=== PATIENT | female | born 1960 | race Caucasian/White ===

== ENCOUNTER 2021-05-17 06:08 | Day surgery (SDC) | payer BC ==
[~2021-05-17] VITALS: Ht 157.5 cm; Wt 69.3 kg
[2021-05-17] MEDS ORDERED: EUTHYROX50 MCG PO (06:38)
[2021-05-17] MEDS ORDERED: ASPI81CH PO (06:38)
--- NOTE | 2021-05-17 07:21 | NUR ---
05/17/21 0721 Gavin Rhodes transdermal patch applied to left ear for n/v
== END 2021-05-17 09:46 | disposition home or self-care (01) ==
LOC: ORSCSDS 06:08
PROVIDERS: Surgery
PROC: BF031ZZ Plain Radiography of Gallbladder and Bile Ducts using Low Osmolar Contrast (ICD-10-PCS; principal; 2021-05-17 07:30)
PROC: 0FT44ZZ Resection of Gallbladder, Percutaneous Endoscopic Approach (ICD-10-PCS; principal; 2021-05-17 07:30)
DX: K80.10 Calculus of gallbladder with chronic cholecystitis without obstruction (principal); E03.9 Hypothyroidism, unspecified; Z79.899 Other long term (current) drug therapy; Z79.82 Long term (current) use of aspirin
CPT/HCPCS: 74300; 88304; A9270; C1729; J0690; J1100; J1885; J2310; J2370; J2405; J2704; J3010; J7120

== ENCOUNTER 2021-08-21 06:55 | Day surgery (SDC) | payer BC ==
[~2021-08-21] VITALS: Ht 160 cm; Wt 72.0 kg
[~2021-08-21 06:55] MED LIST: ASPI81CH PO; EUTHYROX50 MCG PO
--- NOTE | 2021-08-21 08:13 | NUR ---
[facility] warming gown applied. History, Chart, Medications and Allergies reviewed before start of procedure.Lungs clear T/O to Auscultation. Patient confirms NPO status and agrees with scheduled surgery. Pre-Op teaching done. Pt verbalizes understanding. Patient States Post-Procedure ride home has been arranged.
--- NOTE | 2021-08-21 11:27 | NUR ---
Patient up to Ambulate independently. Gait steady. Discharge instructions reviewed with patient AND PT'S . Patient verbalizes understanding. Copy given to patient to take home. Discharged via wheelchair to private car for ride home.
== END 2021-08-21 23:20 | disposition home or self-care (01) ==
LOC: ORSCMMR 06:55 → ORSCSDS 08-22 09:15 → ORD 08-22 09:15 → ORSCMMR 08-22 10:15
PROVIDERS: Obstetrics & Gynecology
PROC: 0UDB8ZX Extraction of Endometrium, Via Natural or Artificial Opening Endoscopic, Diagnostic (ICD-10-PCS; principal; 2021-08-21 08:30)
DX: C54.1 Malignant neoplasm of endometrium (principal); N95.0 Postmenopausal bleeding; N85.00 Endometrial hyperplasia, unspecified; E03.9 Hypothyroidism, unspecified; Z79.899 Other long term (current) drug therapy
CPT/HCPCS: 88305; A9270; J0690; J1100; J1885; J2250; J2405; J2704; J3010; J7120

== ENCOUNTER 2023-07-24 08:26 | Day surgery (SDC) | payer BC ==
[~2023-07-24] VITALS: Ht 157.5 cm; Wt 68.8 kg
[~2023-07-24 08:26] MED LIST changes: +ASPIR 8181 M1 PO; +Atropine Sulfate 0.1 MG/ML 10ML SYR ONE; +Celebrex50 MG PO; +Glycopyrrolate 0.2 MG/ML 1MLVIAL ONE; +Lactated Ringer's 1,000 ML IV ONE; +Lidocaine 2% 5 ML SDV ONE; +Lidocaine HCl/Pf 1% 5 ML VIAL ONE; +MAGNESIUM OXID500 MG PO; +Methylene Blue 1% 100 MG/10 ML VIAL ONE; +Ondansetron HCl 2 MG / ML 2ML Vial ONE; +TRAZ50 PO; +VENL75ER PO; +ePHEDrine Sulfate 50 MG/ML 1ML Injection ONE; +propofoL 50 ML IV ONE
[2023-07-24] MEDS ORDERED: FLAX (09:29)
[2023-07-24] MEDS ORDERED: TUMS500 MG (09:30)
[2023-07-24] MEDS ORDERED: Lactated Ringer's 1,000 ML IV ONE (09:42)
[2023-07-24 11:06] VITALS: BP 131/76
== END 2023-07-24 10:58 | disposition home or self-care (01) ==
LOC: ORSCSDS 08:26
PROVIDERS: Surgery
PROC: 0DJD8ZZ Inspection of Lower Intestinal Tract, Via Natural or Artificial Opening Endoscopic (ICD-10-PCS; principal; 2023-07-24 09:45)
DX: Z12.11 Encounter for screening for malignant neoplasm of colon (principal); K57.30 Diverticulosis of large intestine without perforation or abscess without bleeding; E03.9 Hypothyroidism, unspecified; Z79.82 Long term (current) use of aspirin; Z79.899 Other long term (current) drug therapy
CPT/HCPCS: J0461; J2001; J2405; J2704; J7120; Q9968

== ENCOUNTER → 2024-07-06 | Outpatient (CLI) | payer BC ==
[~2024-07-06] MED LIST changes: -Atropine Sulfate 0.1 MG/ML 10ML SYR ONE; +FLAX; -Glycopyrrolate 0.2 MG/ML 1MLVIAL ONE; -Lactated Ringer's 1,000 ML IV ONE; -Lidocaine 2% 5 ML SDV ONE; -Lidocaine HCl/Pf 1% 5 ML VIAL ONE; -Methylene Blue 1% 100 MG/10 ML VIAL ONE; -Ondansetron HCl 2 MG / ML 2ML Vial ONE; +TUMS500 MG; -ePHEDrine Sulfate 50 MG/ML 1ML Injection ONE; -propofoL 50 ML IV ONE
== END | disposition home or self-care (01) ==
LOC: LAB SHORT 15:12 → LAB 15:12
DX: N39.0 Urinary tract infection, site not specified (principal)
CPT/HCPCS: 87086